=== PATIENT | female | born 1950 | race Caucasian/White ===

== ENCOUNTER → 2017-01-29 | Outpatient (CLI) | payer MEDICARE | END | disposition home or self-care (01) | LOC: CFH 10:35 | PROVIDERS: ATTEND Nurse Practitioner Family | DX: Z12.31 Encounter for screening mammogram for malignant neoplasm of breast (principal) | CPT/HCPCS: G0202 ==

== ENCOUNTER → 2018-02-11 | Outpatient (CLI) | payer MEDICARE | LOC: CFH 12:29 | PROVIDERS: ATTEND Nurse Practitioner Family | DX: Z12.31 Encounter for screening mammogram for malignant neoplasm of breast (principal) | CPT/HCPCS: 77063; 77067 ==

== ENCOUNTER 2020-01-15 12:24 | Outpatient (CLI) | payer MEDICARE | END 2020-01-15 23:59 | disposition home or self-care (01) | LOC: CVU 12:24 | PROVIDERS: ATTEND Internal Medicine Cardiovascular Disease | DX: I36.1 Nonrheumatic tricuspid (valve) insufficiency (principal); E11.9 Type 2 diabetes mellitus without complications; I48.91 Unspecified atrial fibrillation; I51.7 Cardiomegaly | CPT/HCPCS: 93306 ==

== ENCOUNTER 2020-01-18 09:48 | Day surgery (SDC) | payer MEDICARE ==
[~2020-01-18] VITALS: Ht 160 cm; Wt 107.3 kg
[2020-01-18 10:20] VITALS: BP 145/69
[2020-01-18] MEDS ORDERED: SODIUM CHLORIDE 0.9% 1,000 ML IV ONE (10:30)
[2020-01-18] MEDS ORDERED: POTA20TA6 PO (10:35)
[2020-01-18] MEDS ORDERED: LOSA25TA25 PO (10:35)
[2020-01-18] MEDS ORDERED: FURO20TA3 PO (10:35)
[2020-01-18] MEDS ORDERED: METO25TA91 PO ×2 (10:35→11:57)
[2020-01-18] MEDS ORDERED: OMEG1CAP24 PO (10:35)
[2020-01-18] MEDS ORDERED: APIX5TAB PO (10:35)
[2020-01-18] MEDS ORDERED: ATOR40TA PO (10:35)
[2020-01-18] MEDS ORDERED: MULT-257 PO (10:35)
[2020-01-18] MEDS ORDERED: METF500T17 PO (10:35)
[2020-01-18] MEDS ORDERED: ASPI-496 PO (10:35)
[2020-01-18 10:52] LABS: ALANINE AMINOTRANSFERASE 23 U/L (12-78); ANION GAP 5 mmol/L (5-15); CALCIUM 9.8 mg/dL (8.5-10.1); CHLORIDE 107 mmol/L (98-107); CREATININE 0.76 mg/dL (0.55-1.02)
[2020-01-18 10:55] LABS: ALKALINE PHOSPHATASE 89 U/L (45-117); BILIRUBIN,TOTAL 1.3 mg/dL (0.2-1.0); TOTAL PROTEIN 7.3 g/dL (6.4-8.2)
[2020-01-18] MEDS ORDERED: PROPOFOL 10 MG/ML, 20ML ONE (11:32)
== END 2020-01-18 13:06 | disposition home or self-care (01) ==
LOC: CACL 09:48
PROVIDERS: ATTEND Internal Medicine Cardiovascular Disease
DX: I48.91 Unspecified atrial fibrillation (principal); I08.1 Rheumatic disorders of both mitral and tricuspid valves; I70.0 Atherosclerosis of aorta; I10 Essential (primary) hypertension; E11.65 Type 2 diabetes mellitus with hyperglycemia; E78.5 Hyperlipidemia, unspecified; E66.9 Obesity, unspecified; Z68.41 Body mass index [BMI] 40.0-44.9, adult; Z79.01 Long term (current) use of anticoagulants; Z79.82 Long term (current) use of aspirin; Z79.84 Long term (current) use of oral hypoglycemic drugs; Z79.899 Other long term (current) drug therapy; Z85.828 Personal history of other malignant neoplasm of skin; Z98.51 Tubal ligation status; Z98.890 Other specified postprocedural states; Z82.49 Family history of ischemic heart disease and other diseases of the circulatory system
CPT/HCPCS: 36415; 80053; 92960; 93312; 93321; 93325; J2704

== ENCOUNTER 2020-02-22 09:51 | Day surgery (SDC) | payer MEDICARE ==
[~2020-02-22] VITALS: Ht 160 cm; Wt 103.2 kg
[~2020-02-22 09:51] MED LIST: APIX5TAB PO; ASPI-496 PO; ATOR40TA PO; FURO20TA3 PO; LOSA25TA25 PO; METF500T17 PO; METO25TA91 PO; MULT-257 PO; OMEG1CAP24 PO; POTA20TA6 PO
[2020-02-22 10:19] VITALS: BP 129/66
[2020-02-22] MEDS ORDERED: DIGO125T85 PO (10:31)
[2020-02-22 10:37] LABS: BASOPHILS # (AUTO) 0.03 x10^3/uL (0-0.1); BASOPHILS % (AUTO) 0 % (0-1); EOSINOPHILS # (AUTO) 0.27 x10^3/uL (0-0.4); EOSINOPHILS % (AUTO) 4 % (1-7); LYMPHOCYTES # (AUTO) 1.61 x10^3/uL (1-3.4); LYMPHOCYTES % (AUTO) 23 % (22-44); MD NO; MEAN CORPUSCULAR HEMOGLOBIN 30.4 pg (27.0-34.8); MEAN CORPUSCULAR HGB CONC 33.1 g/dL (32.4-35.8); MEAN CORPUSCULAR VOLUME 91.8 fL (80-100); MEAN PLATELET VOLUME 9.8 fL (7.4-10.4); MONOCYTES # (AUTO) 0.44 x10^3/uL (0.2-0.8); MONOCYTES % (AUTO) 6 % (2-9); NEUTROPHILS # (AUTO) 4.82 x10^3/uL (1.8-6.8); NEUTROPHILS % (AUTO) 67 % (42-75); PLATELET COUNT 191 x10^3/uL (130-400); RED BLOOD COUNT 4.19 x10^6/uL (3.82-5.3); RED CELL DISTRIBUTION WIDTH 14.7 % (9.6-15.2)
[2020-02-22 10:51] LABS: ANION GAP 9 mmol/L (5-15); CALCIUM 9.6 mg/dL (8.5-10.1); CHLORIDE 105 mmol/L (98-107); CREATININE 0.73 mg/dL (0.55-1.02)
[2020-02-22] MEDS ORDERED: PROPOFOL 10 MG/ML, 20ML ONE (12:01)
== END 2020-02-22 13:33 | disposition home or self-care (01) ==
LOC: CACL 09:51
PROVIDERS: ATTEND Internal Medicine Cardiovascular Disease
DX: I48.91 Unspecified atrial fibrillation (principal); I44.0 Atrioventricular block, first degree; I10 Essential (primary) hypertension; E11.65 Type 2 diabetes mellitus with hyperglycemia; E78.5 Hyperlipidemia, unspecified; E66.3 Overweight; Z68.41 Body mass index [BMI] 40.0-44.9, adult; Z79.01 Long term (current) use of anticoagulants; Z79.82 Long term (current) use of aspirin; Z79.84 Long term (current) use of oral hypoglycemic drugs; Z79.899 Other long term (current) drug therapy; Z85.828 Personal history of other malignant neoplasm of skin; Z98.51 Tubal ligation status; Z82.49 Family history of ischemic heart disease and other diseases of the circulatory system
CPT/HCPCS: 36415; 80048; 85025; 92960; 93005; J2704

== ENCOUNTER → 2020-09-21 | Outpatient (CLI) | payer MEDICARE ==
[~2020-09-21] MED LIST changes: +DIGO125T85 PO
== END | disposition home or self-care (01) ==
LOC: CFH 09:57
PROVIDERS: ATTEND Nurse Practitioner Family
DX: Z12.31 Encounter for screening mammogram for malignant neoplasm of breast (principal)
CPT/HCPCS: 77063; 77067

== ENCOUNTER 2021-01-05 11:03 | Outpatient (CLI) | payer MEDICARE | END 2021-01-05 23:59 | disposition home or self-care (01) | LOC: CFH 11:03 | PROVIDERS: ATTEND Internal Medicine Cardiovascular Disease | DX: I08.3 Combined rheumatic disorders of mitral, aortic and tricuspid valves (principal); R06.02 Shortness of breath | CPT/HCPCS: 93306 ==